=== PATIENT | male | born 1970 | race Caucasian/White ===

== ENCOUNTER 2017-04-01 20:36 | Emergency (ER) | payer MEDICAID ==
[~2017-04-01] VITALS: Ht 185.4 cm; Wt 90.7 kg
[2017-04-01 20:40] VITALS: BP 135/63
[2017-04-01] MEDS ORDERED: KEPPRA500 M4 ORAL (21:13)
--- NOTE | 2017-04-01 21:14 | Emergency Room Report ---
History of Present Illness General Chief Complaint: Seizure Source: Patient Present Illness HPI This is a 46-year-old male with a history of seizure since his been 6 years old. He gets them intermittently. He is currently taking Keppra 1000 mg a day. He presents with chief complaint of a seizure that is tonic-clonic in nature. Occur was on the bus. He does not drive. He has no trauma. Seizure was brief. He usually get several or before his seizure. Denies any other complaint. No incontinence of bowel or urine. No tongue trauma. Allergies: Coded Allergies: No Known Allergies (Unverified , 04/01/17) Patient History Past Medical History: see triage record, old chart reviewed, seizures Past Surgical History: none Pertinent Family History: none Social History: Denies: smoking Immunizations: other Reviewed Nursing Documentation: PMH: Agreed, PSxH: Agreed Nursing Documentation-PMH Past Medical History Deferred: Pt Cognitively Impaired Hx Seizures: Yes Review of Systems Eye: Denies: eye pain, blurred vision ENT: Denies: ear pain, nose congestion, throat swelling Respiratory: Denies: cough, shortness of breath Cardiovascular: Denies: chest pain, palpitations Gastrointestinal: Denies: abdominal pain, diarrhea, nausea, vomiting Musculoskeletal: Denies: back pain, joint pain Skin: Denies: rash Neurological: Denies: headache, numbness Endocrine: Denies: increased thirst, increased urine Hematologic/Lymphatic: Denies: easy bruising All Other Systems: negative except mentioned in HPI Physical Exam Vital Signs Date Time Temp Pulse Resp B/P (MAP) Pulse Ox O2 Delivery O2 Flow Rate FiO2 04/01/17 20:29 98.8 115 18 135/63 98 Room Air 98.8 vitals normal Sp02 EP Interpretation: reviewed, normal General Appearance: well appearing, no apparent distress, alert Head: normocephalic, atraumatic Eyes: bilateral eye PERRL, bilateral eye EOMI ENT: hearing grossly normal, normal pharynx Neck: full range of motion, supple, no meningismus Respiratory: chest non-tender, lungs clear, normal breath sounds Cardiovascular #1: regular rate, rhythm - Heart rate 95, no murmur Gastrointestinal: normal bowel sounds, non tender, no mass, no organomegaly, no bruit, non-distended Musculoskeletal: back normal, gait/station normal, normal range of motion Psychiatric: mood/affect normal Skin: warm/dry Medical Decision Making Diagnostic Impression: Primary Impression: Epileptic seizure, generalized ER Course Patient with a breakthrough seizure. He gets this intermittently. This is typical for him. I see no need for any further workup. Patient doesn't want any new medication. We'll discharge home with an increase in his Keppra to 1500 a day. Also referred to neurologist. I see no need DMV report says he does not drive Last Vital Signs Date Time Temp Pulse Resp B/P (MAP) Pulse Ox O2 Delivery O2 Flow Rate FiO2 04/01/17 20:40 98.8 18 135/63 98 Room Air 98.8 04/01/17 20:40 115 Status: improved Disposition: HOME, SELF-CARE Scripts Levetiracetam (KEPPRA) 500 Mg Tablet 500 MG ORAL DAILY, #60 TAB 0 Refills Prov: KARI CORNELIUS M.D. 04/01/17 Patient Instructions: Seizure, Adult Additional Instructions: Followup your Dr. in 7 days. Take 1000 mg of Keppra in the morning and 500 mg at night. Return if worse. KARI CORNELIUS M.D. Apr 01, 2017 21:14
[2017-04-01 21:40] VITALS: BP 135/63
== END 2017-04-01 21:30 | disposition home or self-care (01) ==
LOC: EDBD 20:36 → EMR 21:00
DX: G40.409 Other generalized epilepsy and epileptic syndromes, not intractable, without status epilepticus (principal)
CPT/HCPCS: 99283